=== PATIENT | male | born 1975 | race Caucasian/White ===

== ENCOUNTER → 2020-03-01 08:51 | Outpatient (BNVA) | payer SELFPAY | PROVIDERS: PCP Internal Medicine; Visit Provider Nurse Practitioner Family | DX: G47.33 Obstructive sleep apnea (adult) (pediatric) (principal) | CPT/HCPCS: 99212 ==

== ENCOUNTER → 2020-04-26 09:13 | Outpatient (BNVA) | payer OTHER, SELFPAY | PROVIDERS: PCP Nurse Practitioner Family; Visit Provider Nurse Practitioner Family | DX: Z76.89 Persons encountering health services in other specified circumstances (principal) ==

== ENCOUNTER → 2020-07-26 09:22 | Outpatient (BNVA) | payer OTHER, SELFPAY | PROVIDERS: PCP Nurse Practitioner Family; Visit Provider Nurse Practitioner Family ==

== ENCOUNTER 2020-09-17 09:17 | Outpatient (REF) | payer OTHER, SELFPAY ==
[2020-09-17 11:31] LABS: Alanine Aminotransferase 67 U/L (0-40); Albumin Level 4.6 g/dL (3.5-5.0); Alkaline Phosphatase 99 U/L (39-117); Anion Gap 15 (12-20); Aspartate Amino Transferase 29 U/L (5-37); Bilirubin Total 0.5 mg/dL (0.0-1.0); Blood Urea Nitrogen 10 mg/dL (9-16); Calcium 9.2 mg/dL (8.4-10.2); Carbon Dioxide 27 mmol/L (22-29); Chloride 104 mmol/L (96-108); Cholesterol 194 mg/dL; Estimated Glomerular Filt Rate > 60; Glucose Fasting 96 mg/dL (60-99); HDL Cholesterol 42 mg/dL; LDL Cholesterol Calculated 126 mg/dl; Potassium 4.5 mmol/L (3.3-5.1); Sodium 141 mmol/L (135-145); Total Protein 7.4 g/dL (6.5-8.0); Triglycerides 133 mg/dL
[2020-09-17 11:55] LABS: TSH reflex Free T4 1.74 uIU/mL (0.32-4.0)
== END 2020-09-17 09:18 | disposition home or self-care (01) ==
LOC: HO.HMGCLDS 09:17
PROVIDERS: PCP Nurse Practitioner Family; Visit Provider Nurse Practitioner Family
DX: Z00.00 Encounter for general adult medical examination without abnormal findings (principal)
CPT/HCPCS: 36415; 80053; 80061; 84443

== ENCOUNTER 2022-06-02 09:03 | Outpatient (REF) | payer OTHER, SELFPAY ==
[2022-06-02 11:10] LABS: Appearance Urine Clear; Color Urine Yellow; Glucose Urine UA Negative (Negative); Leukocyte Esterase Urine Negative (Negative); Nitrite Urine Negative (Negative); Urine Blood Negative (Negative); Urine Ketones Negative (Negative); Urine Protein Negative (Neg-Trace)
[2022-06-02 11:34] LABS: Alanine Aminotransferase 52 U/L (0-40); Albumin Level 4.7 g/dL (3.5-5.0); Alkaline Phosphatase 92 U/L (39-117); Anion Gap 15 (12-20); Aspartate Amino Transferase 25 U/L (5-37); Bilirubin Total 0.7 mg/dL (0.0-1.0); Blood Urea Nitrogen 11 mg/dL (9-16); Calcium 9.5 mg/dL (8.4-10.2); Carbon Dioxide 26 mmol/L (22-29); Chloride 104 mmol/L (96-108); Cholesterol 185 mg/dL; Estimated Glomerular Filt Rate > 60; Glucose Fasting 93 mg/dL (60-99); HDL Cholesterol 46 mg/dL; LDL Cholesterol Calculated 121 mg/dl; Potassium 4.2 mmol/L (3.3-5.1); Sodium 141 mmol/L (135-145); Total Protein 7.4 g/dL (6.5-8.0); Triglycerides 93 mg/dL
[2022-06-02 11:41] LABS: TSH reflex Free T4 1.25 uIU/mL (0.32-4.0)
== END 2022-06-02 09:04 | disposition home or self-care (01) ==
LOC: HO.HMGCLDS 09:03
PROVIDERS: PCP Nurse Practitioner Family; Visit Provider Nurse Practitioner Family
DX: Z00.00 Encounter for general adult medical examination without abnormal findings (principal)
CPT/HCPCS: 36415; 80053; 80061; 81003; 84443

== ENCOUNTER 2022-08-22 12:01 | Outpatient (REF) | payer OTHER, SELFPAY ==
--- NOTE | 2022-08-22 09:15 | EMG_ITS ---
Please see scanned EMG / Nerve Conduction Report. MTDD
== END 2022-08-22 12:02 | disposition home or self-care (01) ==
LOC: HO.NEURO 12:01
PROVIDERS: PCP Nurse Practitioner Family; Visit Provider Nurse Practitioner Family
DX: R20.0 Anesthesia of skin (principal)
CPT/HCPCS: 95885; 95913

== ENCOUNTER 2022-11-22 09:26 | Outpatient (AMB) | payer OTHER, SELFPAY ==
[2022-11-22 09:38] VITALS: BP 140/88; PULSE 85; O2SAT 95; BMI 37.3
--- NOTE | 2022-11-22 09:38 | MHC.PC.OV ---
Vital Signs 11/22/22 09:38 Height 5 ft 10 in Weight 260 lb 2 oz BMI 37.3 BP 140/88 H Blood Pressure Location Lt brachial Position Sitting Pulse 85 Pulse Source Pulse Oximeter Pulse Oximetry (%) 95 Oxygen Delivery Method Room Air Intake Visit Reasons: 5m follow up ( nerve conduction ) Allergies No Known Allergies Allergy (Verified 11/22/22 12:08) Medication List - Last Reconciled 11/22/22 by BELINDA Gregg amlodipine 10 mg PO DAILY atorvastatin 40 mg PO BEDTIME hydrochlorothiazide 25 mg PO DAILY losartan 100 mg PO DAILY metoprolol succinate ER 25 mg PO DAILY 30 days trazodone 50 mg PO BEDTIME PRN 90 days Tobacco use date assessed: 11/22/22 Dental Screening Dental Screen Date: 11/22/22 Did you have a dental visit in the last 12 months?: No Did you have a dental problem in the last 6 months where you did not have access to dental care?: No Was dental information given to patient?: No HPI 5m follow up ( nerve conduction ) HPI Details Pt reports ongoing bilat hand numbness. He had EMG/nerve conduction testing which showed mild to moderate carpal tunnel to the right and mild carpal tunnel to the left. Pt has worn wrist braces which helped when he wore them. HTN: Blood pressure is managed with amlodipine 10mg, hydrochlorothiazide 25mg, and losartan 100mg. Will add metoprolol 25mg. Denies chest pain, shortness of breath, headache, dizziness, and blurred vision. Pt c/o insomnia. He reports no longer taking trazodone 50mg because it makes him too tired in the morning. Recommended taking 25mg. Also encouraged pt to wear his CPAP. [facility] Medical History (Updated 11/22/22 @ 12:13 by BELINDA Gregg) Carpal tunnel syndrome, bilateral Family history of heart disease Fatty liver GERD (gastroesophageal reflux disease) Hyperlipidemia Sleep apnea Family History Father Hypertension Mother No problems noted. 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 Zen Mix, Diana Naranjo, Neno Burnham and colleagues, with an educational gregoria from [employer]. Review of Systems Const Reports as per HPI Physical exam (Primary Care) Vital Signs: Last Vital Signs Pulse 85 11/22/22 09:38 BP 140/88 H 11/22/22 09:38 Pulse Ox 95 11/22/22 09:38 Oxygen Delivery Method Room Air 11/22/22 09:38 BMI result Body Mass Index 37.3 Tobacco/Smoking Status: Tobacco use Status Tobacco use date assessed 11/22/22 11/22/22 09:42 Patient Tobacco Use Status Never used Tobacco 11/22/22 09:42 e-Cigarette/Vaping Use Never Used 11/22/22 09:42 Thrive Assessment: Date of Thrive Assessment Date Thrive assessed 06/19/22 11/22/22 09:42 Const General: cooperative Nutritional Appearance: obese Orientation/consciousness: patient oriented x3 Resp Effort & Inspection: normal respiratory effort Auscultation: clear to auscultation bilaterally Cardio Rate: regular rate Rhythm: regular rhythm Heart sounds: S1 normal heart sound present and S2 normal heart sound present Neuro General: patient oriented x3 Extrem Right lower extremity: no edema Left lower extremity: no edema Psych Appearance: grossly normal Mental Status: mental status grossly normal Speech and movement: Normal speech and movement present Affect: normal affect Attitude: cooperative Thought process: Normal thought process present Thought content: Normal thought content present Insight: Good insight present (Psych) Judgement: Good judgement present (Psych) Assessment and Plan Assessment & Plan (1) Carpal tunnel syndrome, bilateral: Code(s): G56.03 - Carpal tunnel syndrome, bilateral upper limbs (2) HTN (hypertension): Comment: continue losartan, hctz, amlodipine, pt will track BP at home, BB added Code(s): I10 - Essential (primary) hypertension (3) Mild obstructive sleep apnea: Comment: AHI 11.6/hr, O2 alex 85%. Resp Company: [facility]. Code(s): G47.33 - Obstructive sleep apnea (adult) (pediatric) Plan The patient agreed to the use of a rn medical inpatient services for this encounter. Scribed for BELINDA Mondragon by Loreto Ríos rn medical inpatient services, on 11/22/2022 at 09:55 EST. Medications: New metoprolol succinate ER 25 mg PO DAILY 30 days 30 tabs 4RF Coding Level of Care Code Est Pt Level 3 (07980) Diagnoses Carpal tunnel syndrome, bilateral G56.03 HTN (hypertension) I10 Mild obstructive sleep apnea G47.33
== END 2022-11-22 10:26 | disposition home or self-care (01) ==
PROVIDERS: Visit Provider Nurse Practitioner Family
DX: G56.03 Carpal tunnel syndrome, bilateral upper limbs (principal); I10 Essential (primary) hypertension; G47.33 Obstructive sleep apnea (adult) (pediatric)
CPT/HCPCS: 99213

== ENCOUNTER 2022-12-18 12:28 | Outpatient (AMB) | payer OTHER, SELFPAY ==
--- NOTE | 2022-12-18 13:13 | AM.OFFWIN_ITS ---
Intake Vital Signs 12/18/22 13:14 Weight 255 lb BP 112/72 Blood Pressure Location Lt brachial Position Sitting Pulse 92 Pulse Source Pulse Oximeter Temp 97.8 F Temp Source Temporal Artery Scan Pulse Oximetry (%) 95 Oxygen Delivery Method Room Air Intake Visit Reasons: EP Chest cold/Congestion (masked) Intake Note: Patient here for chest congestion, bad cough, very min nausea for about 1 week Patient Tobacco Use Status: Never used Tobacco Allergies No Known Allergies Allergy (Verified 12/18/22 13:15) Do you need a note to return to daycare/school/sports/work: No HPI EP Chest cold/Congestion (masked) HPI Details 47-year-old male patient presents today with a 7 day history of chest congestion, wheezing, persistent nonproductive cough. He has tried numerous [id number] remedies including different cough medicines without relief. He has had some intermittent wheezing, and used his partners albuterol inhaler yesterday with some good relief. Coughing fits become exacerbated at night time, and have been making sleep difficult. He denies any fever, chills, shortness of breath, body aches, or GI symptoms. [facility]END[facility] SALE TO [facility] Medical History Carpal tunnel syndrome, bilateral Family history of heart disease Fatty liver GERD (gastroesophageal reflux disease) Hyperlipidemia Sleep apnea Family History Father Hypertension Mother No problems noted. 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 Current occupational exposures/hazards: No Cognitive needs: No Hearing needs: No Vision needs: No Review of Systems Const All systems reviewed & are unremarkable except as noted in HPI and below Physical Exam Vital Signs: Last Vital Signs Temp 97.8 F 12/18/22 13:14 Pulse 92 12/18/22 13:14 BP 112/72 12/18/22 13:14 Pulse Ox 95 12/18/22 13:14 Oxygen Delivery Method Room Air 12/18/22 13:14 Const Other: Actively coughing General: cooperative, healthy appearing and no acute distress HEENT Head: Yes normal to inspection Ears: hearing grossly normal bilaterally General nose exam: Normal external nose present and Normal nasal mucous membranes and turbinates present Mouth: Normal oral and palatal mucosa present and moist mucous membranes Throat: Yes posterior oropharynx normal Neck Neck: Yes no lymphadenopathy Resp Effort & Inspection: normal respiratory effort, able to speak in complete sentences and Actively coughing Quality: actively coughing Auscultation: wheezes upper bilaterally Cardio Jugular venous distension: no JVD Palpation: normal PMI Rate: regular rate Rhythm: regular rhythm Skin General skin exam: no rashes or lesions noted Extrem General: Yes capillary refill normal and Yes no clubbing, cyanosis or edema Psych Appearance: grossly normal Mental Status: mental status grossly normal Speech and movement: Normal speech and movement present Assessment & Plan Assessment & Plan (1) Bronchitis, acute: Code(s): J20.9 - Acute bronchitis, unspecified Qualifiers: Bronchitis organism: unspecified organism Qualified Code(s): J20.9 - Acute bronchitis, unspecified Plan: Persistent cough, intermittent wheezing x>7 days despite conservative measures. Will start patient on azithromycin, benzonatate, and provided him with rx for albuterol inhaler for p.r.n. use. We reviewed indications, use, possible side effects of all medications. If he does not improve with time and these measures, he should return to the clinic or PCP for further evaluation. Patient verbalizes understanding and agrees to plan. Medications: New benzonatate 100 mg PO BID PRN 14 caps 0RF cough 7 days J20.9 - Acute bronchitis, unspecified, R05.9 - Cough, unspecified albuterol sulfate 90 mcg/actuation 1 inh inhalation QID PRN 6.7 grams 1RF sh ortness of breath or wheezing J20.9 - Acute bronchitis, unspecified azithromycin For 250 mg dose pack: take 500 mg today (day 1), then 250 mg for 4 days (days 2-5) PO 6 tabs 0RF J20.9 - Acute bronchitis, unspecified Coding Level of Care Code Est Pt Level 3 (54086) Diagnoses Bronchitis, acute J20.9 Bronchitis organism: unspecified organism
[2022-12-18 13:14] VITALS: BP 112/72; PULSE 92; TEMP 36.6; O2SAT 95
== END 2022-12-18 14:08 | disposition home or self-care (01) ==
PROVIDERS: PCP Nurse Practitioner Family; Visit Provider Nurse Practitioner Family
DX: J20.9 Acute bronchitis, unspecified (principal)
CPT/HCPCS: 99213

== ENCOUNTER 2023-03-26 09:17 | Outpatient (REF) | payer OTHER, SELFPAY ==
[2023-03-26 10:20] LABS: MANUAL DIFF FLAG NO
[2023-03-26 10:48] LABS: Basophils Absolute Auto 0.1 X10*3/uL (0.0-0.2); Basophils Percent Auto 0.7 % (0-2); Eosinophils Absolute Auto 0.2 X10*3/uL (0.0-0.4); Eosinophils Percent Auto 3.3 % (0-4); Hematocrit 45.8 % (42.0-52.0); Hemoglobin 15.4 g/dl (14.0-18.0); Imm Gran Abs Auto 0.03 X10*3/uL (0.00-0.03); Imm Gran Pct Auto 0.4 % (0.0-0.4); Lymphocytes Absolute Auto 2.5 X10*3/uL (1.2-4.9); Lymphocytes Percent Auto 33.6 % (20-40); Mean Corpuscular HGB Conc 33.6 g/dl (31.0-36.0); Mean Corpuscular Hemoglobin 29.1 pg (27.0-33.0); Mean Corpuscular Volume 86.4 fL (80.0-98.0); Mean Platelet Volume 10.1 fL (9.4-12.4); Monocytes Absolute Auto 0.5 X10*3/uL (0.1-1.2); Monocytes Percent Auto 6.1 % (2-11); Neutrophils Absolute Auto 4.1 x10*3/uL (2.0-8.3); Neutrophils Percent Auto 55.9 % (45-73); Platelet Count 292 X10*3/uL (160-400); Red Cell Distribution Width 12.5 % (11.0-16.0); White Blood Count 7.4 X10*3/uL (4.8-10.8)
[2023-03-26 10:50] LABS: Appearance Urine Clear; Color Urine Yellow; Glucose Urine UA Negative (Negative); Leukocyte Esterase Urine Negative (Negative); Nitrite Urine Negative (Negative); Specific Gravity - Urine 1.015 (1.005-1.025); Urine Blood Negative (Negative); Urine Ketones Negative (Negative); Urine Protein Trace mg/dL (Neg-Trace)
[2023-03-26 11:27] LABS: Alanine Aminotransferase 59 U/L (0-40); Albumin Level 4.5 g/dL (3.5-5.0); Alkaline Phosphatase 95 U/L (39-117); Anion Gap 12 (12-20); Aspartate Amino Transferase 28 U/L (5-37); Bilirubin Total 0.9 mg/dL (0.0-1.0); Blood Urea Nitrogen 10 mg/dL (9-16); Calcium 9.5 mg/dL (8.4-10.2); Carbon Dioxide 28 mmol/L (22-29); Chloride 104 mmol/L (96-108); Cholesterol 186 mg/dL (<200); Estimated Glomerular Filt Rate > 60; Glucose Fasting 100 mg/dL (60-99); HDL Cholesterol 43 mg/dL (>40); LDL Cholesterol Calculated 122 mg/dL (<100); Potassium 4.1 mmol/L (3.3-5.1); Sodium 140 mmol/L (135-145); TSH reflex Free T4 1.44 uIU/mL (0.32-4.0); Total Protein 7.9 g/dL (6.5-8.0); Triglycerides 108 mg/dL (<150)
== END 2023-03-26 09:18 | disposition home or self-care (01) ==
LOC: HO.HMGCLDS 09:17
PROVIDERS: PCP Nurse Practitioner Family; Visit Provider Nurse Practitioner Family
DX: Z00.00 Encounter for general adult medical examination without abnormal findings (principal); I10 Essential (primary) hypertension
CPT/HCPCS: 36415; 80053; 80061; 81003; 84443; 85025

== ENCOUNTER 2023-04-01 09:18 | Outpatient (AMB) | payer OTHER, SELFPAY ==
--- NOTE | 2023-04-01 09:37 | MHC.PC.OV ---
Vital Signs 04/01/23 09:38 Weight 258 lb BP 128/80 Blood Pressure Location Lt brachial Position Sitting Pulse 72 Pulse Source Pulse Oximeter Pulse Oximetry (%) 98 Oxygen Delivery Method Room Air Intake Visit Reasons: 4 month fu Allergies No Known Allergies Allergy (Verified 04/01/23 09:38) Medication List - Last Reconciled 04/01/23 by EAMON GreggRIKA albuterol sulfate 90 mcg/actuation 1 inh inhalation QID PRN amlodipine 10 mg PO DAILY atorvastatin 40 mg PO BEDTIME hydrochlorothiazide 25 mg PO DAILY losartan 100 mg PO DAILY metoprolol succinate ER 25 mg PO DAILY 30 days trazodone 50 mg PO BEDTIME PRN 90 days Tobacco use date assessed: 11/22/22 HPI 4 month fu HPI Details HTN: Blood pressure is stable, managed with amlodipine 10mg, hydrochlorothiazide 25mg, losartan 100mg, and metoprolol 25mg. Pt does not check his blood pressure at home. Denies chest pain, shortness of breath, headache, dizziness, and blurred vision. [facility] Medical History Carpal tunnel syndrome, bilateral Fatty liver Family history of heart disease GERD (gastroesophageal reflux disease) Sleep apnea Hyperlipidemia Family History Father Hypertension Mother No problems noted. 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 Zen Mix, Diana Naranjo, Neno Burnham and colleagues, with an educational gregoria from [employer]. Review of Systems Const Reports as per HPI Physical exam (Primary Care) Vital Signs: Last Vital Signs Pulse 72 04/01/23 09:38 BP 128/80 04/01/23 09:38 Pulse Ox 98 04/01/23 09:38 Oxygen Delivery Method Room Air 04/01/23 09:38 Tobacco/Smoking Status: Tobacco use Status Tobacco use date assessed 11/22/22 04/01/23 09:38 Patient Tobacco Use Status Never used Tobacco 04/01/23 09:38 e-Cigarette/Vaping Use Never Used 04/01/23 09:38 Thrive Assessment: Date of Thrive Assessment Date Thrive assessed 06/19/22 04/01/23 09:38 Const General: cooperative Nutritional Appearance: obese Orientation/consciousness: patient oriented x3 Resp Auscultation: clear to auscultation bilaterally Cardio Rate: regular rate Rhythm: regular rhythm Heart sounds: S1 normal heart sound present, S2 normal heart sound present and no murmurs Neuro General: patient oriented x3 Psych Appearance: grossly normal Mental Status: mental status grossly normal Speech and movement: Normal speech and movement present Affect: normal affect Attitude: cooperative Thought process: Normal thought process present Thought content: Normal thought content present Insight: Good insight present (Psych) Judgement: Good judgement present (Psych) Assessment and Plan Assessment & Plan (1) Screening for colon cancer: Code(s): Z12.11 - Encounter for screening for malignant neoplasm of colon (2) HTN (hypertension): Comment: cont all meds Code(s): I10 - Essential (primary) hypertension Plan The patient agreed to the use of a medical reimbursement manager for this encounter. Scribed for BELINDA Mondragon by Loreto Ríos medical reimbursement manager, on 04/01/2023 at 09:50 EST. Orders: Referrals Gastroenterology Referral Z12.11 - Encounter for screening for malignant neoplasm of colon Coding Level of Care Code Est Pt Level 3 (51010) Diagnoses Screening for colon cancer Z12.11 HTN (hypertension) I10
[2023-04-01 09:38] VITALS: BP 128/80; PULSE 72; O2SAT 98
== END 2023-04-01 10:37 | disposition home or self-care (01) ==
PROVIDERS: PCP Nurse Practitioner Family; Visit Provider Nurse Practitioner Family
DX: Z12.11 Encounter for screening for malignant neoplasm of colon (principal); I10 Essential (primary) hypertension
CPT/HCPCS: 99213

== ENCOUNTER 2023-08-09 15:14 | Outpatient (AMB) | payer OTHER, SELFPAY ==
--- NOTE | 2023-08-09 15:16 | MHC.OFFVIS ---
Vital Signs 08/09/23 15:21 Height 5 ft 10 in Weight 267 lb BMI 38.3 BP 161/92 H Blood Pressure Location Lt brachial Position Sitting Pulse 95 Intake Visit Reasons: Colonoscopy Screening Intake Note: Patient is seen in office for colonoscopy screening. Pt c/o: denies any prior colonoscopy has family hx of prostate cancer, had issues last month with hemorrhoids in the past month, has resolve, denies any other concerns such as n/v/d/c Assisted Living Director Required: No Allergies No Known Allergies Allergy (Verified 08/09/23 15:21) HPI HPI Colonoscopy Screening: Details: 47 year old?male with past medical history of hypertension, TANYA, insomnia is here today for pre colonoscopy screening.? Patient was sent to us by his PCP.? This is his first colonoscopy screening.? Patient denies any gastrointestinal symptoms in the past or at present.? ?No family history of CRC, patient is grandfather was diagnosed with prostate cancer at age 60. Patient never had anesthesia in the past.? History of sleep apnea, not using CPAP at this time.? Denies any history of cardiac, renal, pulmonary, or hepatic disease.?? No history of infectious? diseases like hepatitis A, B, C, HIV or tuberculosis.? Patient is not on any anticoagulation therapy. [facility] Medical History Carpal tunnel syndrome, bilateral Fatty liver Family history of heart disease GERD (gastroesophageal reflux disease) Sleep apnea Hyperlipidemia Family History (Updated 08/09/23 @ 15:50 by NELSON Tobin) Father Hypertension Mother No problems noted. 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 Current occupational exposures/hazards: No Cognitive needs: No Hearing needs: No Vision needs: No Review of Systems Const Denies weight gain and Denies weight loss ENT Reports no additional complaints, Denies dysphagia and Denies odynophagia Card Reports no additional complaints Resp Reports no additional complaints GI Denies abdominal pain, Denies belching, Denies melena, Denies bloating, Denies change in bowel habits, Denies dysphagia, Denies excessive flatus, Denies dyspepsia, Denies heartburn, Denies diarrhea, Denies loose stools, Denies nausea, Denies odynophagia and Denies vomiting Reports no additional complaints Musc Reports no additional complaints Neuro Reports no additional complaints Psych Reports no additional complaints Endo Reports no additional complaints Physical Exam Vital Signs: Last Vital Signs Pulse 95 08/09/23 15:21 BP 161/92 H 08/09/23 15:21 BMI result Body Mass Index 38.3 Const General: healthy appearing and no acute distress Nutritional Appearance: obese Orientation/consciousness: patient oriented x3 Resp Effort & Inspection: normal respiratory effort, able to speak in complete sentences, no tracheal deviation and symmetric chest movement Auscultation: clear to auscultation bilaterally Cardio Rate: regular rate GI Inspection: Yes normal to inspection, No distended and Yes obesity Palpation (GI): Soft to palpation, not firm, nontender and No hepatosplenomegaly present Auscultation: normal bowel sounds General: Yes no CVA tenderness Back/Spine/Pelvis Back: no CVA tenderness Skin General skin exam: elasticity normal, turgor normal and dry skin Neuro General: patient oriented x3 Psych Appearance: grossly normal Mental Status: mental status grossly normal Assessment & Plan Assessment & Plan (1) Screening for colon cancer: Code(s): Z12.11 - Encounter for screening for malignant neoplasm of colon Category: Medical Plan Patient denies any GI, cardiac or respiratory symptoms. ?Denies anesthesia in the past.? History of sleep apnea.? No history infectious diseases in the past or present.? Not on any anticoagulation therapy.? No family or personal history of colon cancer or polyps.? Patient denies melena, hematochezia, unintentional weight loss or ribbon like stools.? Discussed at length the pre-procedure,? prep, diet & medications as well as what to expect prior, during and after the procedure.?? Stressed the importance of good bowel prep. ?Recommended the use of Vaseline or Calmoseptine OTC & baby wipes with bowel movements to promote comfort.? ?Patient verbalizes understanding and agrees to plan of care.? He was given the opportunity to ask questions and all questions answered.? We will see him after the procedure.? Medications: New polyethylene glycol 3350 (Miralax) As directed by gastroenterology department at [facility] 238 grams PO ONCE 238 grams 0RF Z12.11 - Encounter for screening for malignant neoplasm of colon bisacodyl (Dulcolax (bisacodyl)) take 4 tabs at noon the day before your colonoscopy 20 mg (4 x 5 mg) PO ONCE 1 day 4 tabs 0RF Z12.11 - Encounter for screening for malignant neoplasm of colon
[2023-08-09 15:21] VITALS: BP 161/92; PULSE 95; BMI 38.3
== END 2023-08-09 16:09 | disposition home or self-care (01) ==
PROVIDERS: PCP Nurse Practitioner Family; Visit Provider Nurse Practitioner Family
DX: Z12.11 Encounter for screening for malignant neoplasm of colon (principal); Z01.818 Encounter for other preprocedural examination
CPT/HCPCS: 99203

== ENCOUNTER → 2023-08-09 15:14 | Outpatient (BNVA) | payer OTHER, SELFPAY | PROVIDERS: PCP Nurse Practitioner Family; Visit Provider Nurse Practitioner Family ==

== ENCOUNTER 2023-09-30 13:39 | Outpatient (AMB) | payer OTHER, SELFPAY ==
--- NOTE | 2023-09-30 14:03 | MHC.PC.OV ---
Vital Signs 09/30/23 14:06 Height 5 ft 10 in Weight 265 lb BMI 38.0 BP 128/80 Blood Pressure Location Rt brachial Position Sitting Pulse 69 Pulse Source Pulse Oximeter Pulse Oximetry (%) 98 Oxygen Delivery Method Room Air Intake Visit Reasons: Annual PE Intake Note: Patient here for physical exam. pt would like to talk about stress Allergies No Known Allergies Allergy (Verified 09/30/23 16:55) Medication List - Last Reconciled 09/30/23 by BELINDA Gregg albuterol sulfate 90 mcg/actuation 1 inh inhalation QID PRN amlodipine 10 mg PO DAILY atorvastatin 40 mg PO BEDTIME hydrochlorothiazide 25 mg PO DAILY losartan 100 mg PO DAILY metoprolol succinate ER 25 mg PO DAILY polyethylene glycol 3350 (Miralax) 238 grams PO ONCE trazodone 50 mg PO BEDTIME PRN 90 days Tobacco use date assessed: 09/30/23 Dental Screening Dental Screen Date: 09/30/23 Did you have a dental visit in the last 12 months?: Yes Did you have a dental problem in the last 6 months where you did not have access to dental care?: No Was dental information given to patient?: Patient has dentist HPI Annual PE HPI Details Pt is here for a PE. Will order labs. Colon screen is scheduled. PENDING SALE TO [facility] Medical History Carpal tunnel syndrome, bilateral Fatty liver Family history of heart disease GERD (gastroesophageal reflux disease) Sleep apnea Hyperlipidemia Family History Father Hypertension Mother No problems noted. 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 84115 - PHQ-9 Billing: Patient declined-do not bill Source: Developed by Drs. Zen Mix, Diana Naranjo, Neno Burnham and colleagues, with an educational gregoria from [employer]. Thrive Questionnaire Date Thrive assessed: 09/30/23 I am a: Patient What is your living situation today?: I choose not to answer this question Within the past 12 months, did the food you bought not last and you didn't have the money to get more?: I choose not to answer this question Within the past 12 months, did you worry whether your food would run out before you got money to buy more?: I choose not to answer this question Do you have trouble paying for medicines?: I choose not to answer this question Do you have trouble getting transportation to medical appointments?: I choose not to answer this question Do you have trouble paying your heating and electricity bill?: I choose not to answer this question Do you have trouble taking care of your child, family member or friend?: I choose not to answer this question Do you have trouble with day-to-day activities such as bathing, preparing meals, shopping, managing finances, etc.?: I choose not to answer this question Are you currently unemployed and looking for a job?: I choose not to answer this question Are you interested in more education?: I choose not to answer this question Currently or been in a relationship where the following occur: I choose not to answer this question THRIVE Score: 0 AUDIT C Alcohol Use Questionnaire (AUDIT-C) 1. How often do you have a drink containing alcohol?: Never 3. How often do you have six or more drinks on one occasion?: Never Total Score: 0 Score Reviewed/Action Taken: No MAYELA-7 AMB Questionnaire MAYELA-7 Date MAYELA - 7 assessed: 09/30/23 Source: Developed by Drs. Zen Mix, Diana Naranjo, Neno Burnham and colleagues, with an educational gregoria from [employer]. MAYELA-7 Assessment Billing MAYELA-7 Assessment Tool: pt declined-do not bill Review of Systems Const Denies chills and Denies fever(s) Eyes Denies blurry vision ENT Denies vertigo, Denies dizziness and Denies sore throat Card Denies chest pain at rest, Denies chest pain with activity, Denies diaphoresis, Denies dyspnea and Denies dyspnea on exertion Resp Denies cough, Denies dyspnea, Denies dyspnea on exertion and Denies wheezing GI Denies abdominal pain, Denies melena, Denies hematochezia, Denies constipation, Denies diarrhea and Denies loose stools Denies hematuria Musc Denies numbness and Denies tingling Skin/Breast Denies lesions Neuro Denies vertigo, Denies dizziness, Denies numbness and Denies tingling Psych Denies anxiety, Denies depression, Denies homicidal ideation, Denies suicidal ideation and Denies other (substance abuse) Aller/Immun Denies wheezing Physical exam (Primary Care) Vital Signs: Last Vital Signs Pulse 69 09/30/23 14:06 BP 128/80 09/30/23 14:06 Pulse Ox 98 09/30/23 14:06 Oxygen Delivery Method Room Air 09/30/23 14:06 BMI result Body Mass Index 38.0 Tobacco/Smoking Status: Tobacco use Status Tobacco use date assessed 09/30/23 09/30/23 14:11 Patient Tobacco Use Status Never used Tobacco 09/30/23 14:05 e-Cigarette/Vaping Use Never Used 09/30/23 14:05 Thrive Assessment: Date of Thrive Assessment Date Thrive assessed 09/30/23 09/30/23 14:11 Currently or been in a relationship where the following occur: I choose not to answer this question Const General: cooperative Nutritional Appearance: obese Orientation/consciousness: patient oriented x3 HENMT Head: Yes normal to inspection, Yes normocephalic and Yes atraumatic Ears: TM's normal bilaterally Eyes General: appearance normal, both eyes and all related structures Alignment and Position: alignment normal and position normal Neck Neck: Yes normal visual inspection and Yes no lymphadenopathy Thyroid: Thyroid normal Resp Effort & Inspection: normal respiratory effort Auscultation: clear to auscultation bilaterally Cardio Rate: regular rate Rhythm: regular rhythm Heart sounds: S1 normal heart sound present, S2 normal heart sound present and no murmurs GI Palpation (GI): Soft to palpation and nontender Auscultation: normal bowel sounds Male General Exam: Yes normal external exam Penis: normal penis Scrotum: scrotum normal, testes descended bilaterally and no inguinal hernias Testes: no testicular mass Skin Rashes: no rashes Neuro General: patient oriented x3, moves all extremities, no focal motor deficits and deep tendon reflexes 2+ bilaterally Romberg Test: Negative Psych Appearance: grossly normal Mental Status: mental status grossly normal Speech and movement: Normal speech and movement present Affect: normal affect Attitude: cooperative Thought process: Normal thought process present Thought content: Normal thought content present Insight: Good insight present (Psych) Judgement: Good judgement present (Psych) Assessment and Plan Assessment & Plan (1) Physical exam: Code(s): Z00.00 - Encounter for general adult medical examination without abnormal findings Plan: labs ordered (2) Obesity: Code(s): E66.9 - Obesity, unspecified Plan: encouraged weight loss, watching diet. Plan The patient agreed to the use of a medical records receptionist for this encounter. Scribed for BELINDA Mondragon by Loreto Ríos medical records receptionist, on 09/30/2023 at 14:25 EST. Coding Level of Care Code Est Pt Prev Care 40-64y(55453) Diagnoses Physical exam Z00.00 Obesity E66.9
[2023-09-30 14:06] VITALS: BP 128/80; PULSE 69; O2SAT 98; BMI 38.0
== END 2023-09-30 14:28 | disposition home or self-care (01) ==
PROVIDERS: PCP Nurse Practitioner Family; Visit Provider Nurse Practitioner Family
DX: Z00.00 Encounter for general adult medical examination without abnormal findings (principal); E66.9 Obesity, unspecified; Z68.38 Body mass index [BMI] 38.0-38.9, adult
CPT/HCPCS: 99396

== ENCOUNTER 2023-12-19 10:32 | Day surgery (SDC) | payer OTHER, SELFPAY ==
[2023-12-19 10:43] VITALS: BP 142/100; PULSE 88; RESP 16; TEMP 36.7; O2SAT 98; BMI 35.5
[2023-12-19] MEDS: Lactated Ringers 1,000 ML 100 ML IVCONT (10:57)
--- NOTE | 2023-12-19 11:40 | P.CONAN_ITS ---
Documented by User: Shanika Jones NP 12/18/23 09:03 HPI - Anesthesia Eval Consult details Narrative: 48yo M for Colonoscopy PMFSH Active Problems Active Problems: All Active Problems Obesity (Acute) Screening for colon cancer (Acute) Carpal tunnel syndrome, bilateral (Acute) Numbness in both hands (Acute) Lesion of penis (Acute) Insomnia (Acute) Physical exam (Acute) HTN (hypertension) (Acute) Mild obstructive sleep apnea (Acute) Past Medical History Medical History Carpal tunnel syndrome, bilateral Fatty liver Family history of heart disease GERD (gastroesophageal reflux disease) Sleep apnea Hyperlipidemia Family History Family History Father Hypertension Mother No problems noted. Paternal Grandfather Prostate cancer Social History Social History Housing: House Are you a primary special needs child caregiver to a significant other at home: No Do you presently have visiting nurse or other home services: No Alcohol intake: never Patient Tobacco Use Status: Never used Tobacco e-Cigarette/Vaping Use: Never Used Second Hand Smoke Exposure: No Use of substances other than those prescribed or required for medical reasons: No Have you been hit, kicked, punched, or otherwise hurt by someone within the past year? 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 Current occupational exposures/hazards: No Cognitive needs: No Hearing needs: No Vision needs: No Meds Allergies Allergy/AdvReac Type Severity Reaction Status Date / Time No Known Allergies Allergy Verified 09/30/23 16:55 Assessment and Plan Assessment Anesthesia Assessment: Chart Reviewed Documented by User: Shantal Rhodes DO 12/19/23 11:49 [facility] Past Medical History Medical History Carpal tunnel syndrome, bilateral Fatty liver Family history of heart disease GERD (gastroesophageal reflux disease) Sleep apnea Hyperlipidemia Family History Family History Father Hypertension Mother No problems noted. Paternal Grandfather Prostate cancer Family history of problems with anesthesia: No Surgical History History of Problems with Anesthesia: Unobtainable (patient never had anesthesia before) Social History Social History Housing: House Are you a primary special needs child caregiver to a significant other at home: No Do you presently have visiting nurse or other home services: No Alcohol intake: never Patient Tobacco Use Status: Never used Tobacco e-Cigarette/Vaping Use: Never Used Second Hand Smoke Exposure: No Use of substances other than those prescribed or required for medical reasons: No Have you been hit, kicked, punched, or otherwise hurt by someone within the past year? 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 Current occupational exposures/hazards: No Cognitive needs: No Hearing needs: No Vision needs: No Meds Allergies Allergy/AdvReac Type Severity Reaction Status Date / Time No Known Allergies Allergy Verified 09/30/23 16:55 Exam Exam Date and Time: 12/19/23 1140 Height,Weight and Vital Signs: Height 5 ft 10 in Weight 112.128 kg Vital Signs Temperature 98.1 F 12/19/23 10:43 Pulse Rate 88 12/19/23 10:43 Respiratory Rate 16 12/19/23 10:43 Blood Pressure 142/100 H 12/19/23 10:43 Pulse Oximetry 98 12/19/23 10:43 Oxygen Delivery Method Room Air 12/19/23 10:43 Temperature 98.1 F 12/19/23 10:43 Pulse Rate 88 12/19/23 10:43 Respiratory Rate 16 12/19/23 10:43 Blood Pressure 142/100 H 12/19/23 10:43 Pulse Oximetry 98 12/19/23 10:43 Oxygen Delivery Method Room Air 12/19/23 10:43 Airway Mallampati Class: II TM Dist: >3cm Neck ROM: Full Loose/Missing/Broken Teeth: No (patient denies any loose or broken teeth) Heart: S1S2 Lungs: CTAB Assessment and Plan Assessment Anesthesia Assessment: Anesthesia Plan Discussed and Chart Reviewed Final Anesthetic Review Family History of Problems with Anesthesia: No History of Problems with Anesthesia: Unobtainable (patient never had anesthesia before) NPO: Yes ASA Class: II Final Preanesthetic Review: No Changes in Pt Med Stat, Meds/Allgs Chart Reviewed, Consent Obtained/Reviewed and Anes Risks/Benef Reviewed Patient Risk: Low Procedure Risk: Low Anesthetic Plan Anesthetic Plan: MAC: and Agree w/ Assess. and Plan Disposition: Standard PACU
--- NOTE | 2023-12-19 11:54 | MHC.SHP ---
Pre-Procedural Eval Section A - 24 Hr Update-Section A only Date of Service: 12/19/23 Section B - Complete if H&P > 30 days Chief Complaint: Encounter for screening for malignant neoplasm of Relevant Family History (Specify if Yes): No Relevant Social History: None Present Medications: see Short Stay Collaborative assessment Medical History: Significant History (Carpal tunnel syndrome, bilateral Fatty liver Family history of heart disease GERD (gastroesophageal reflux disease) Sleep apnea Hyperlipidemia) History of Previous Operations: Relevant previous surgery/procedure and date(s) Allergies: Allergies Allergy/AdvReac Type Severity Reaction Status Date / Time No Known Allergies Allergy Verified 09/30/23 16:55 Review of Systems Sugical H&P ROS: Negative: Constitution, Cardiovascular, Respiratory, Neurological, Psychiatric, Hem-Onc, Allergic/Immunologic, Gastrointestinal, Genitourinary, Musculoskeletal, Integumentary, Endocrine and Eyes/Ears/Nose/Throat Exam Surgical H&P Exam: Normal: HEENT, Normal: Heart, Normal: Lungs, Normal: Extremities, Normal: Abdomen, Normal: Skin and Normal: Neurological Plan Diagnosis/Plan: Unchanged I have reviewed the history and physical and performed a pertinent physical examination on my patient. No changes have occurred unless specified. Time Spent With Patient Time: Total time managing care of this patient today ____ minutes.
--- NOTE | 2023-12-19 11:56 | HO.OPN-COLON ---
Colonoscopy Operative Note Operative Note Date of Service: 12/19/23 Narrative: Operative Information Procedure Description: Colonoscopy Indication: Screening Anesthesia: MAC COLONOSCOPY Instrument: Olympus variable stiffness ADULT scope 190L Colonoscopy Monitoring: Vital signs and clinical assessment, continuous EKG monitoring, Pulse oximetry, Carbon Dioxide monitoring and blood pressure monitoring were done throughout the procedure. Colon withdrawal time was 10 minutes. Procedure: The patient was placed in the left lateral decubitis position and pre-procedure medications were administered. After a digital rectal examination of the ano-rectum, the video colonoscope was inserted into the rectum and advanced through the colon to the cecum/TI. The colonoscope was slowly withdrawn in a retrograde panoramic fashion and the colon mucosa was carefully examined including a retroflexed view of the rectum. Findings and interventions are described below. Procedure Difficulty: easy Findings: Terminal Ileum-normal Cecum:normal right sided retroflexion-normal Ascending Colon: normal Transverse Colon -normal Descending Colon: mild diverticulosis Sigmoid Colon: mild diverticulosis Rectum: Retroflexion with small internal hemorrhoids seen, grade I Anorectum - normal Intervention: none Colon preparation: [place] Bowel Preparation Scale Right colon; 2 Transverse colon: 2 Left colon; 2 (0 = Unprepared colon segment with mucosa not seen due to solid stool that cannot be cleared. 1 = Portion of mucosa of the colon segment seen, but other areas of the colon segment not well seen due to staining, residual stool and/or opaque liquid. 2 = Minor amount of residual staining, small fragments of stool and/or opaque liquid, but mucosa of colon segment seen well. 3 = Entire mucosa of colon segment seen well with no residual staining, small fragments of stool or opaque liquid) Impression and Post Procedure Diagnosis: diverticulosis internal hemorrhoids Plan: High fiber diet leaflet Avoid straining at stool, epsom salts and sitz bath, anusol supps or cream Repeat Colonoscopy in 10 years or earlier if clinically indicated Above findings were reviewed with the patient and relevant handouts were provided if indicated.
[2023-12-19 12:23] VITALS: BP 107/72; PULSE 97; RESP 16; TEMP 36.5; O2SAT 97
[2023-12-19 12:38] VITALS: BP 133/97; PULSE 91; RESP 18; TEMP 36.5; O2SAT 96
== END 2023-12-19 12:57 | disposition home or self-care (01) ==
PROVIDERS: PCP Internal Medicine; Visit Provider Internal Medicine Gastroenterology
PROC: 0DJD8ZZ Inspection of Lower Intestinal Tract, Via Natural or Artificial Opening Endoscopic (ICD-10-PCS; CPT 45378; principal; 2023-12-19 12:40)
DX: Z12.11 Encounter for screening for malignant neoplasm of colon (principal); K57.30 Diverticulosis of large intestine without perforation or abscess without bleeding; K64.0 First degree hemorrhoids; K76.0 Fatty (change of) liver, not elsewhere classified; K21.9 Gastro-esophageal reflux disease without esophagitis; I10 Essential (primary) hypertension; E78.5 Hyperlipidemia, unspecified; G47.30 Sleep apnea, unspecified
CPT/HCPCS: 45378; J2704

== ENCOUNTER → 2023-12-19 10:32 | Outpatient (BNV) | payer OTHER, SELFPAY | PROVIDERS: PCP Internal Medicine; Visit Provider Internal Medicine Gastroenterology | DX: Z12.11 Encounter for screening for malignant neoplasm of colon (principal); K57.90 Diverticulosis of intestine, part unspecified, without perforation or abscess without bleeding; K64.0 First degree hemorrhoids | CPT/HCPCS: 45378 ==

== ENCOUNTER 2024-01-20 07:58 | Outpatient (AMB) | payer OTHER, SELFPAY ==
[2024-01-20 08:16] VITALS: BP 140/90; PULSE 62; O2SAT 97; BMI 36.1
--- NOTE | 2024-01-20 08:16 | A.OFFVIS_ITS ---
Vital Signs 01/20/24 08:16 Height 5 ft 10 in Weight 251 lb 5.231 oz BMI 36.1 BP 140/90 H Blood Pressure Location Rt brachial Position Sitting Pulse 62 Pulse Source Pulse Oximeter Pulse Oximetry (%) 97 Oxygen Delivery Method Room Air Intake Visit Reasons: s/p colo major Intake Note: Aristides presents in office today for a scheduled s/p FUV. CC; Pt reports that they are here to discuss results of their procedure. Pt denies any new complications or concerns post op. Pt does not require any refills as they don't have any rx from this office. Stator Winder Required: No Allergies No Known Allergies Allergy (Verified 01/20/24 08:17) HPI HPI s/p colo major: Details: LAST VISIT: Screening for colon cancer Plan Patient denies any GI, cardiac or respiratory symptoms. ?Denies anesthesia in th e past.? History of sleep apnea.? No history infectious diseases in the past or present.? Not on any anticoagulation therapy.? No family or personal history of colon cancer or polyps.? Patient denies melena, hematochezia, unintentional weight loss or ribbon like stools.? Discussed at length the pre-procedure,? prep, diet & medications as well as what to expect prior, during and after the procedure.?? Stressed the importance of good bowel prep. ?Recommended the use of Vaseline or Calmoseptine OTC & baby wipes with bowel movements to promote comfort.? ?Patient verbalizes understanding and agrees to plan of care.? He was given the opportunity to ask questions and all questions answered.? We will see him after the procedure.? Medications New polyethylene glycol 3350 (Miralax) As directed by gastroenterology department at [facility] 238 grams PO ONCE 238 grams 0RF Z12.11 bisacodyl (Dulcolax (bisacodyl)) take 4 tabs at noon the day before your colonoscopy 20 mg (4 x 5 mg) PO ONCE 1 day 4 tabs 0RF Z12.11 COLONOSCOPY: Findings: Terminal Ileum-normal Cecum:normal right sided retroflexion-normal Ascending Colon: normal Transverse Colon -normal Descending Colon: mild diverticulosis Sigmoid Colon: mild diverticulosis Rectum: Retroflexion with small internal hemorrhoids seen, grade I Anorectum - normal Intervention: none Colon preparation: [place] Bowel Preparation Scale Right colon; 2 Transverse colon: 2 Left colon; 2 (0 = Unprepared colon segment with mucosa not seen due to solid stool that can not be cleared. 1 = Portion of mucosa of the colon segment seen, but other areas of the colon segment not well seen due to staining, residual stool and/or opaque liquid. 2 = Minor amount of residual staining, small fragments of stool and/or opaque liquid, but mucosa of colon segment seen well. 3 = Entire mucosa of colon segment seen well with no residual staining, small fragments of stool or opaque liquid) Impression and Post Procedure Diagnosis: diverticulosis internal hemorrhoids Plan: High fiber diet leaflet Avoid straining at stool, epsom salts and sitz bath, anusol supps or cream Repeat Colonoscopy in 10 years or earlier if clinically indicated TODAY'S VISIT: Patient is here today for follow-up and to discuss colonoscopy results. Patient denies any ill effects from the prep, anesthesia or procedure itself. Patient had no polyps. Diverticulosis to left colon and hemorrhoids found. Patient reports family history of CRC. Patient's grandmother was diagnosed with colon cancer. Patient denies any melena, hematochezia. Patient reports that he has no GI concerning symptoms. Moving his bowels without any issues. Denies dyspepsia, dysphagia or odynophagia. [facility] Medical History (Updated 01/20/24 @ 09:13 by Fabienne Yost, [facility]) Diverticulosis Carpal tunnel syndrome, bilateral Fatty liver Family history of heart disease GERD (gastroesophageal reflux disease) Sleep apnea Hyperlipidemia Family History Father Hypertension Mother No problems noted. 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 Current occupational exposures/hazards: No Cognitive needs: No Hearing needs: No Vision needs: No Review of Systems Const Denies weight gain and Denies weight loss ENT Reports no additional complaints, Denies dysphagia and Denies odynophagia Card Reports no additional complaints Resp Reports no additional complaints GI Denies abdominal pain, Denies belching, Denies melena, Denies bloating, Denies change in bowel habits, Denies dysphagia, Denies excessive flatus, Denies dyspepsia, Denies heartburn, Denies diarrhea, Denies loose stools, Denies nausea, Denies odynophagia and Denies vomiting Reports no additional complaints Musc Reports no additional complaints Neuro Reports no additional complaints Psych Reports no additional complaints Endo Reports no additional complaints Physical Exam Vital Signs: Last Vital Signs Pulse 62 01/20/24 08:16 BP 140/90 H 01/20/24 08:16 Pulse Ox 97 01/20/24 08:16 Oxygen Delivery Method Room Air 01/20/24 08:16 BMI result Body Mass Index 36.1 Const General: healthy appearing and no acute distress Nutritional Appearance: obese Orientation/consciousness: patient oriented x3 Resp Effort & Inspection: normal respiratory effort, able to speak in complete sentences, no tracheal deviation and symmetric chest movement Auscultation: clear to auscultation bilaterally Cardio Rate: regular rate GI Inspection: Yes normal to inspection, No distended and Yes obesity Palpation (GI): Soft to palpation, not firm, nontender and No hepatosplenomegaly present Auscultation: normal bowel sounds General: Yes no CVA tenderness Back/Spine/Pelvis Back: no CVA tenderness Skin General skin exam: elasticity normal, turgor normal and dry skin Neuro General: patient oriented x3 Psych Appearance: grossly normal Mental Status: mental status grossly normal Assessment & Plan Assessment & Plan (1) Diverticulosis: Code(s): K57.90 - Diverticulosis of intestine, part unspecified, without perforation or abscess without bleeding Category: Medical (2) Status post colonoscopy: Code(s): Z98.890 - Other specified postprocedural states (3) Family history of colorectal cancer: Code(s): Z80.0 - Family history of malignant neoplasm of digestive organs Plan Patient was encouraged to increase fiber in his diet. Patient will add probiotic daily. Colonoscopy in 5 years due to family history of CRC. Sooner if clinically necessary. Patient will follow-up in the office on as needed basis he is agreeable to this plan and verbalizes understanding of instructions. He was given the opportunity to ask questions and all questions answered. Thank you for allowing me to participate in his care Coding Level of Care Code Est Pt Level 3 (27170) Diagnoses Diverticulosis K57.90 Status post colonoscopy Z98.890 Family history of colorectal cancer Z80.0 Time Spent (min) 25 Comment 15 minutes spent with patient and additional 10 minutes spent reviewing his records
== END 2024-01-20 08:58 | disposition home or self-care (01) ==
PROVIDERS: PCP Internal Medicine; Visit Provider Nurse Practitioner Family
DX: K57.90 Diverticulosis of intestine, part unspecified, without perforation or abscess without bleeding (principal); Z98.890 Other specified postprocedural states; Z80.0 Family history of malignant neoplasm of digestive organs
CPT/HCPCS: 99213

== ENCOUNTER → 2024-01-20 07:58 | Outpatient (BNVA) | payer OTHER, SELFPAY | PROVIDERS: PCP Internal Medicine; Visit Provider Nurse Practitioner Family ==

== ENCOUNTER 2024-02-04 10:01 | Outpatient (AMB) | payer OTHER, SELFPAY ==
[2024-02-04 10:07] VITALS: BP 122/78; PULSE 71; O2SAT 98; BMI 36.4
--- NOTE | 2024-02-04 10:07 | MHC.PC.OV ---
Vital Signs 02/04/24 10:07 Height 5 ft 10 in Weight 254 lb BMI 36.4 BP 122/78 Blood Pressure Location Rt brachial Position Sitting Pulse 71 Pulse Source Pulse Oximeter Pulse Oximetry (%) 98 Oxygen Delivery Method Room Air Intake Visit Reasons: 4 Month F/U Intake Note: pt is here for 4 month follow up Insole Buffer Required: No Accompanied by: Self / Same As Patient Allergies No Known Allergies Allergy (Verified 02/04/24 12:12) Medication List - Last Reconciled 02/04/24 by BELINDA Gregg albuterol sulfate 90 mcg/actuation 1 inh inhalation QID PRN amlodipine 10 mg PO DAILY atorvastatin 40 mg PO BEDTIME hydrochlorothiazide 25 mg PO DAILY losartan 100 mg PO DAILY metoprolol succinate ER 25 mg PO DAILY trazodone 50 mg PO BEDTIME PRN 90 days Tobacco use date assessed: 09/30/23 Dental Screening Dental Screen Date: 09/30/23 HPI 4 Month F/U HPI Details HTN: Blood pressure is stable, managed with amlodipine 10mg, hydrochlorothiazide 25mg, losartan 100mg, and metoprolol 25mg. Will order labs. Denies chest pain, shortness of breath, headache, dizziness, and blurred vision. Pt c/o left shoulder/AC joint pain. Will order XR. He also c/o bilat thumb pain. Will order XRs. 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 [facility] Medical History Diverticulosis Carpal tunnel syndrome, bilateral Fatty liver Family history of heart disease GERD (gastroesophageal reflux disease) Sleep apnea Hyperlipidemia Surgical History Hx of colonoscopy Family History Father Hypertension Mother No problems noted. 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 1. Little interest or pleasure in doing things: not at all 2. Feeling down, depressed, or hopeless: not at all 3. Trouble falling or staying asleep, or sleeping too much: nearly every day 4. Feeling tired or having little energy: not at all 5. Poor appetite or overeating: not at all 6. Feeling bad about yourself - or that you are a failure or have let yourself or your family down: not at all 7. Trouble concentrating on things, such as reading the newspaper or watching television: not at all 8. Moving or speaking so slowly that other people could have noticed. Or the opposite - being so fidgety or restless that you have been moving around a lot more than usual: not at all 9. Thoughts that you would be better off or of hurting yourself in some way: not at all Total score: 3 Depression Screening Interpretation: Negative Depression Screening Done: Yes 46269 - PHQ-9 Billing: Yes Source: Developed by Drs. Zen Mix, Diana Naranjo, Neno Burnham and colleagues, with an educational gregoria from [employer]. Thrive Questionnaire Date Thrive assessed: 02/04/24 I am a: Patient What is your living situation today?: I have a steady place to live Within the past 12 months, did the food you bought not last and you didn't have the money to get more?: Never true Within the past 12 months, did you worry whether your food would run out before you got money to buy more?: Never true Do you have trouble paying for medicines?: No Do you have trouble getting transportation to medical appointments?: No Do you have trouble paying your heating and electricity bill?: No Do you have trouble taking care of your child, family member or friend?: No Do you have trouble with day-to-day activities such as bathing, preparing meals, shopping, managing finances, etc.?: No Are you interested in more education?: No Please select the resources that you would like help with: None Currently or been in a relationship where the following occur: No concerns reported THRIVE Score: 0 AUDIT C Alcohol Use Questionnaire (AUDIT-C) 1. How often do you have a drink containing alcohol?: Never 3. How often do you have six or more drinks on one occasion?: Never Total Score: 0 Score Reviewed/Action Taken: Yes MAYELA-7 AMB Questionnaire MAYELA-7 Date MAYELA - 7 assessed: 02/04/24 Feeling nervous, anxious, or on edge: 3 = Nearly every day Not being able to stop or control worryin = Not at all Worrying too much about different things: 0 = Not at all Trouble relaxin = Not at all Being so restless that it is hard to sit still: 0 = Not at all Becoming easily annoyed or irritable: 0 = Not at all Feeling afraid as if something awful might happen: 0 = Not at all Total MAYELA-7 score (0-4 normal; 5-9 mild; 10-14 moderate; 15-21 severe): 3 Source: Developed by Drs. Zen Mix, Diana Naranjo, Neno Burnham and colleagues, with an educational gregoria from [employer]. MAYELA-7 Assessment Billing MAYELA-7 Assessment Tool: MAYELA-7 Assessment 17403 Review of Systems Const Reports as per HPI Physical exam (Primary Care) Vital Signs: Last Vital Signs Pulse 71 02/04/24 10:07 BP 122/78 02/04/24 10:07 Pulse Ox 98 02/04/24 10:07 Oxygen Delivery Method Room Air 02/04/24 10:07 BMI result Body Mass Index 36.4 Tobacco/Smoking Status: Tobacco use Status Tobacco use date assessed 09/30/23 02/04/24 10:11 Patient Tobacco Use Status Never used Tobacco 02/04/24 10:11 e-Cigarette/Vaping Use Never Used 02/04/24 10:11 PHQ-9: PHQ-9 Score PHQ-9: Total score 3 02/04/24 10:25 Depression Screening Interpretation: Negative Thrive Assessment: Date of Thrive Assessment Date Thrive assessed 02/04/24 02/04/24 10:11 Currently or been in a relationship where the following occur: No concerns reported Const General: cooperative Nutritional Appearance: obese Orientation/consciousness: patient oriented x3 Resp Effort & Inspection: normal respiratory effort Auscultation: clear to auscultation bilaterally Cardio Rate: regular rate Rhythm: regular rhythm Heart sounds: S1 normal heart sound present and S2 normal heart sound present Neuro General: patient oriented x3 Extrem Other: left shoulder: + nuno, + neers, pain mostly to anterior left shoulder with assessments and ROM. thumbs without any erythema or swelling. Right lower extremity: no edema Left lower extremity: no edema Psych Appearance: grossly normal Mental Status: mental status grossly normal Speech and movement: Normal speech and movement present Affect: normal affect Attitude: cooperative Thought process: Normal thought process present Thought content: Normal thought content present Insight: Good insight present (Psych) Judgement: Good judgement present (Psych) Coding Level of Care Code Est Pt Level 3 (39377) Diagnoses HTN (hypertension) I10 Left shoulder pain M25.512 Thumb pain M79.646 Additional Codes MAYELA-7 Assessment Billing - MAYELA-7 Assessment Tool: MAYELA-7 Assessment 78904 ([id number]) Assessment & Plan Assessment & Plan (1) HTN (hypertension): Comment: cont all meds Code(s): I10 - Essential (primary) hypertension Category: Medical Plan: Stable, labs ordered (2) Left shoulder pain: Code(s): M25.512 - Pain in left shoulder Category: Medical Plan: XR ordered (3) Thumb pain: Comment: bilat Code(s): M79.646 - Pain in unspecified finger(s) Category: Medical Plan: XRs Plan The patient agreed to the use of a medical physiologist for this encounter. Scribed for BELINDA Mondragon by Loreto Ríos medical physiologist, on 02/04/2024 at 10:25 EST. Orders: Orders Complete Blood Count Auto Diff Today I10 - Essential (primary) hypertension Lipid Panel Today I10 - Essential (primary) hypertension XR shoulder LT min 2V Today M25.512 - Pain in left shoulder Comprehensive [place]. Panel Fast Today I10 - Essential (primary) hypertension TSH reflex Free T4 Today I10 - Essential (primary) hypertension UA CC w/rflx Micro + Cult Today I10 - Essential (primary) hypertension XR finger LT min 2V Today M79.646 - Pain in unspecified finger(s) XR finger RT min 2V Today M79.646 - Pain in unspecified finger(s) HLA B27 Today M25.512 - Pain in left shoulder, M79.646 - Pain in unspecified finger(s)
== END 2024-02-04 11:15 | disposition home or self-care (01) ==
PROVIDERS: PCP Internal Medicine; Visit Provider Nurse Practitioner Family
DX: I10 Essential (primary) hypertension (principal); M25.512 Pain in left shoulder; M79.646 Pain in unspecified finger(s)

== ENCOUNTER → 2024-02-04 10:01 | Outpatient (BNVA) | payer OTHER, SELFPAY | PROVIDERS: PCP Internal Medicine; Visit Provider Nurse Practitioner Family ==

== ENCOUNTER 2024-02-04 10:39 | Outpatient (REF) | payer OTHER, SELFPAY ==
--- NOTE | ~2024-02-04 | XR_ITS ---
EXAMINATION: XR SHOULDER LEFT 4 VIEWS CLINICAL INFORMATION: Pain in left shoulder M25.512. COMPARISON: None available TECHNIQUE: AP , Grashey, scapular Y, and axillary views of the left shoulder. FINDINGS: There is a focal area of lobulated calcific density in the region of the superior rotator cuff. Glenohumeral joint normal. Acromioclavicular joint normal. Surrounding bone and soft tissues otherwise normal XR/XR shoulder LT min 2V Impression: Calcific density in the region of the superior rotator cuff compatible with calcific tendinosis or calcific tendinitis. Electronically signed by: Wicho Chavez MD 04/07/2024 09:26 AM SUNI
--- NOTE | ~2024-02-04 | XR_ITS ---
EXAMINATION: XR FINGER LEFT 3 VIEWS CLINICAL INFORMATION: Pain in unspecified finger(s) M79.646. COMPARISON: None TECHNIQUE: 3 views of the left thumb including AP view of the hand FINDINGS: Tiny marginal osteophytes about the IP joint of the thumb indicative of minimal osteoarthritis The remaining bones joints and soft tissues are unremarkable. XR/XR finger LT min 2V IMPRESSION: Minimal osteoarthritis of the IP joint of the thumb. Electronically signed by: Wicho Chavez MD 04/07/2024 09:43 AM EST
--- NOTE | ~2024-02-04 | XR_ITS ---
EXAMINATION: XR FINGER RIGHT 3 VIEWS CLINICAL INFORMATION: Pain in unspecified finger(s) M79.646. COMPARISON: None TECHNIQUE: 3 views of the right thumb including AP view of the hand FINDINGS: The bones and soft tissues are normal. No fracture. Alignment is anatomic. Joint spaces are maintained. XR/XR finger RT min 2V IMPRESSION: Normal x-ray series of the right thumb Electronically signed by: Wicho Chavez MD 04/07/2024 09:24 AM SUNI
== END 2024-02-04 10:40 | disposition home or self-care (01) ==
LOC: HO.HMGCX 10:39
PROVIDERS: PCP Nurse Practitioner Family; Visit Provider Nurse Practitioner Family
DX: I10 Essential (primary) hypertension (principal); M25.512 Pain in left shoulder; M79.641 Pain in right hand; M79.642 Pain in left hand
CPT/HCPCS: 73030; 73140; 96127

== ENCOUNTER 2024-11-04 14:52 | Outpatient (AMB) | payer OTHER, SELFPAY ==
[2024-11-04 14:58] VITALS: BP 126/86; PULSE 102; RESP 16; TEMP 36.9; O2SAT 94; BMI 37.4
--- NOTE | 2024-11-04 14:58 | A.OFFPC_ITS ---
Vital Signs 11/04/24 14:58 Height 5 ft 10 in Weight 261 lb BMI 37.4 BP 126/86 Blood Pressure Location Lt brachial Position Sitting Respiration 16 Pulse 102 H Pulse Source Pulse Oximeter Temp 98.5 F Temp Source Oral Pulse Oximetry (%) 94 Oxygen Delivery Method Room Air Intake Visit Reasons: PE Metal Reed Tuner Required: No Accompanied by: Self / Same As Patient Allergies No Known Allergies Allergy (Verified 11/04/24 15:58) Medication List - Last Reconciled 11/04/24 by BELINDA Gregg albuterol sulfate 90 mcg/actuation 1 inh inhalation QID PRN amlodipine 10 mg PO DAILY atorvastatin 40 mg PO BEDTIME hydrochlorothiazide 25 mg PO DAILY losartan 100 mg PO DAILY metoprolol succinate ER 25 mg PO DAILY trazodone 50 mg PO BEDTIME PRN 90 days Tobacco use date assessed: 11/04/24 Dental Screening Dental Screen Date: 11/04/24 Did you have a dental visit in the last 12 months?: Yes Did you have a dental problem in the last 6 months where you did not have access to dental care?: No Was dental information given to patient?: Patient has dentist HPI PE HPI Details pt is here for a PE. Reports ongoing joint pains without any erythema or swelling. I will order labs to examine this further. Pt is morbidly obese, and knows he needs to loose weight, which only help with his joint discomfort (knees, hips, lower back, elbows). #2 pt reports intermittent chest discomfort. Denies any radicular symptoms, or PND. EKG in office today, benign. Pt reports he is under a lot of stress, and that's when it tends to be worse. Family Hx of Heart disease. will order a echo and stress test. Colon screen is up to date [facility] Medical History Diverticulosis Carpal tunnel syndrome, bilateral Fatty liver Family history of heart disease GERD (gastroesophageal reflux disease) Sleep apnea Hyperlipidemia Surgical History Hx of colonoscopy Family History Father Hypertension Mother No problems noted. 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 1. Little interest or pleasure in doing things: not at all 2. Feeling down, depressed, or hopeless: not at all 3. Trouble falling or staying asleep, or sleeping too much: not at all 4. Feeling tired or having little energy: not at all 5. Poor appetite or overeating: not at all 6. Feeling bad about yourself - or that you are a failure or have let yourself or your family down: not at all 7. Trouble concentrating on things, such as reading the newspaper or watching television: not at all 8. Moving or speaking so slowly that other people could have noticed. Or the opposite - being so fidgety or restless that you have been moving around a lot more than usual: not at all 9. Thoughts that you would be better off or of hurting yourself in some way: not at all Total score: 0 Depression Screening Interpretation: Negative Depression Screening Done: Yes 41499 - PHQ-9 Billing: Yes Source: Developed by Drs. Zen Mix, Diana Naranjo, Neno Burnham and colleagues, with an educational gregoria from [employer]. Thrive Questionnaire Date Thrive assessed: 10/28/24 I am a: Patient What is your living situation today?: I have a steady place to live Within the past 12 months, did the food you bought not last and you didn't have the money to get more?: Never true Within the past 12 months, did you worry whether your food would run out before you got money to buy more?: Never true Do you have trouble paying for medicines?: No Do you have trouble getting transportation to medical appointments?: No Do you have trouble paying your heating and electricity bill?: No Do you have trouble taking care of your child, family member or friend?: No Do you have trouble with day-to-day activities such as bathing, preparing meals, shopping, managing finances, etc.?: No Are you currently unemployed and looking for a job?: No Are you interested in more education?: No Please select the resources that you would like help with: None Currently or been in a relationship where the following occur: No concerns reported THRIVE Score: 0 AUDIT C Alcohol Use Questionnaire (AUDIT-C) 1. How often do you have a drink containing alcohol?: Never 3. How often do you have six or more drinks on one occasion?: Never Total Score: 0 Score Reviewed/Action Taken: Yes MAYELA-7 AMB Questionnaire MAYELA-7 Date MAYELA - 7 assessed: 11/04/24 Feeling nervous, anxious, or on edge: 0 = Not at all Not being able to stop or control worryin = Not at all Worrying too much about different things: 0 = Not at all Trouble relaxin = Not at all Being so restless that it is hard to sit still: 0 = Not at all Becoming easily annoyed or irritable: 0 = Not at all Feeling afraid as if something awful might happen: 0 = Not at all Total MAYELA-7 score (0-4 normal; 5-9 mild; 10-14 moderate; 15-21 severe): 0 Source: Developed by Drs. Zen Mix, Diana Naranjo, Neno Burnham and colleagues, with an educational gregoria from [employer]. MAYELA-7 Assessment Billing MAYELA-7 Assessment Tool: MAYELA-7 Assessment 36497 Review of Systems Const Denies chills and Denies fever(s) Eyes Denies blurry vision ENT Denies vertigo, Denies dizziness and Denies sore throat Card Denies chest pain at rest, Denies chest pain with activity, Denies diaphoresis, Denies dyspnea and Denies dyspnea on exertion Resp Denies cough, Denies dyspnea, Denies dyspnea on exertion and Denies wheezing GI Denies abdominal pain, Denies melena, Denies hematochezia, Denies constipation, Denies diarrhea and Denies loose stools Denies hematuria Musc Denies numbness and Denies tingling Skin/Breast Denies lesions Neuro Denies vertigo, Denies dizziness, Denies numbness and Denies tingling Psych Denies anxiety, Denies depression, Denies homicidal ideation, Denies suicidal ideation and Denies other (substance abuse) Aller/Immun Denies wheezing Physical exam (Primary Care) Vital Signs: Last Vital Signs Temp 98.5 F 11/04/24 14:58 Pulse 102 H 11/04/24 14:58 Resp 16 11/04/24 14:58 BP 126/86 11/04/24 14:58 Pulse Ox 94 11/04/24 14:58 Oxygen Delivery Method Room Air 11/04/24 14:58 BMI result Body Mass Index 37.4 Tobacco/Smoking Status: Tobacco use Status Tobacco use date assessed 11/04/24 11/04/24 15:04 Patient Tobacco Use Status Never used Tobacco 11/04/24 15:04 e-Cigarette/Vaping Use Never Used 11/04/24 15:04 PHQ-9: PHQ-9 Score PHQ-9: Total score 0 11/04/24 15:04 Depression Screening Interpretation: Negative Thrive Assessment: Date of Thrive Assessment Date Thrive assessed 10/28/24 11/04/24 15:04 Currently or been in a relationship where the following occur: No concerns reported Const General: cooperative Nutritional Appearance: well nourished and obese Orientation/consciousness: patient oriented x3 HENMT Other: slight cerumen to left Head: Yes normal to inspection, Yes normocephalic and Yes atraumatic Ears: TM normal on the right Eyes General: appearance normal, both eyes and all related structures Alignment and Position: alignment normal and position normal Neck Neck: Yes normal visual inspection, Yes no lymphadenopathy and Yes supple Resp Effort & Inspection: normal respiratory effort Auscultation: clear to auscultation bilaterally Cardio Rate: regular rate Rhythm: regular rhythm Heart sounds: S1 normal heart sound present, S2 normal heart sound present and no murmurs GI Other: umbilical hernia noted Palpation (GI): Soft to palpation and nontender Auscultation: normal bowel sounds Male General Exam: Yes normal external exam Penis: normal penis Scrotum: scrotum normal, testes descended bilaterally and no inguinal hernias Testes: no testicular mass Skin Rashes: no rashes Neuro General: patient oriented x3, moves all extremities, no focal motor deficits and deep tendon reflexes 2+ bilaterally Romberg Test: Negative Extrem Right lower extremity: no edema Left lower extremity: no edema Psych Affect: normal affect Attitude: cooperative Thought process: Normal thought process present Coding Level of Care Code Est Pt Level 3 (44207) Est Pt Prev Care 40-64y(89360) Diagnoses Joint pain M25.50 Chest discomfort R07.89 Family history of heart disease Z82.49 Additional Codes MAYELA-7 Assessment Billing - MAYELA-7 Assessment Tool: MAYELA-7 Assessment 48944 ([id number]) PHQ-9 - 88220 - PHQ-9 Billing: Yes ([id number]) Assessment & Plan Assessment & Plan (1) Joint pain: Code(s): M25.50 - Pain in unspecified joint Category: Medical (2) Chest discomfort: Code(s): R07.89 - Other chest pain Category: Medical (3) Family history of heart disease: Code(s): Z82.49 - Family history of ischemic heart disease and other diseases of the circulatory system Category: Medical Plan ekg, echo, stress test ordered. pt knows to seek emergency care with worsening symptoms Orders: Orders YESSENIA Reflex Titer and Pattern Today M25.50 - Pain in unspecified joint Cyclic Citrullinated Peptide Today M25.50 - Pain in unspecified joint Sjogren's Antibodies Today M25.50 - Pain in unspecified joint Erythrocyte Sedimentation Rate Today M25.50 - Pain in unspecified joint C Reactive Protein Today M25.50 - Pain in unspecified joint Uric Acid Today M25.50 - Pain in unspecified joint Complement C4 Today M25.50 - Pain in unspecified joint AMB EKG-In Office Today R07.89 - Other chest pain NM cardiolite stress test Today R07.89 - Other chest pain, Z82.49 - Family history of ischemic heart disease and other diseases of the circulatory system CA stress test Today R07.89 - Other chest pain, Z82.49 - Family history of ischemic heart disease and other diseases of the circulatory system HLA B27 Today M25.50 - Pain in unspecified joint Rheumatoid Factor Today M25.50 - Pain in unspecified joint Lyme IgG/IgM w/reflex to WB Today M25.50 - Pain in unspecified joint Tick-borne Disease Molecular Today M25.50 - Pain in unspecified joint Complement C3 Today M25.50 - Pain in unspecified joint
== END 2024-11-04 15:59 | disposition home or self-care (01) ==
LOC: HO.HMCC 14:52
PROVIDERS: PCP Internal Medicine; Visit Provider Nurse Practitioner Family
DX: Z00.00 Encounter for general adult medical examination without abnormal findings (principal); R07.89 Other chest pain; M25.50 Pain in unspecified joint; Z82.49 Family history of ischemic heart disease and other diseases of the circulatory system

== ENCOUNTER → 2024-11-04 14:52 | Outpatient (BNVA) | payer OTHER, SELFPAY | PROVIDERS: PCP Internal Medicine; Visit Provider Nurse Practitioner Family | DX: K21.9 Gastro-esophageal reflux disease without esophagitis (principal); M25.50 Pain in unspecified joint; R07.89 Other chest pain; E66.01 Morbid (severe) obesity due to excess calories; Z68.37 Body mass index [BMI] 37.0-37.9, adult; Z82.49 Family history of ischemic heart disease and other diseases of the circulatory system | CPT/HCPCS: 96127 ==

== ENCOUNTER 2024-11-11 07:21 | Outpatient (REF) | payer OTHER, SELFPAY ==
[2024-11-11 10:14] LABS: Appearance Urine Clear; Glucose Urine UA Negative (Negative); PH 7.0 (5.0-9.0); Specific Gravity - Urine 1.010 (1.005-1.025)
[2024-11-11 10:27] LABS: MANUAL DIFF FLAG NO
[2024-11-11 10:39] LABS: Hematocrit 46.3 % (42.0-52.0); Hemoglobin 15.7 g/dl (14.0-18.0); Imm Gran Abs Auto 0.02 X10*3/uL (0.00-0.03); Imm Gran Pct Auto 0.3 % (0.0-0.4); Lymphocytes Absolute Auto 2.2 X10*3/uL (1.2-4.9); Mean Corpuscular HGB Conc 33.9 g/dl (31.0-36.0); Mean Corpuscular Hemoglobin 29.5 pg (27.0-33.0); Mean Corpuscular Volume 86.9 fL (80.0-98.0); NRBC Abs Auto 0.000 X10*3/uL (0.0-0.012); NRBC Pct Auto 0.0 /100WBC (0.0-0.2); Platelet Count 263 X10*3/uL (160-400); Red Blood Count 5.33 X10*6/uL (4.60-5.80); White Blood Count 5.9 X10*3/uL (4.8-10.8)
[2024-11-11 10:59] LABS: Alanine Aminotransferase 58 U/L (0-40); Albumin Level 4.6 g/dL (3.5-5.0); Alkaline Phosphatase 77 U/L (39-117); Anion Gap 13 (12-20); Aspartate Amino Transferase 40 U/L (5-37); Blood Urea Nitrogen 11 mg/dL (9-16); Calcium 9.0 mg/dL (8.4-10.2); Carbon Dioxide 27 mmol/L (22-29); Chloride 105 mmol/L (96-108); Cholesterol 176 mg/dL (<200); Estimated Glomerular Filt Rate > 60; HDL Cholesterol 39 mg/dL (>40); Potassium 3.8 mmol/L (3.3-5.1); Sodium 141 mmol/L (135-145); Total Protein 7.1 g/dL (6.5-8.0); Triglycerides 122 mg/dL (<150); Uric Acid 5.5 mg/dL (3.4-7.0)
[2024-11-12 12:54] LABS: Lyme Abs Screen <0.90 index
[2024-11-12 21:28] LABS: Antibody to SS-A Antigen <1.0 NEG AI (<1.0 NEG); Antibody to SS-B Antigen <1.0 NEG AI (<1.0 NEG)
[2024-11-13 00:59] LABS: A. Phagocytphilium DNA,RT-PCR NOT DETECTED (NOT DETECTED); Babesia Microti DNA, RT-PCR NOT DETECTED (NOT DETECTED); Borrelia Miyamotoi,DNA RT-PCR NOT DETECTED (NOT DETECTED); E.Chaffeensis DNA RT-PCR NOT DETECTED (NOT DETECTED); Lyme(Borrelia ssp)DNA RT-PCR NOT DETECTED (NOT DETECTED)
[2024-11-16 11:53] LABS: Anti Nuclear Antibody Screen NEGATIVE (NEGATIVE)
[2024-11-17 18:03] LABS: HLA B27 Negative (Negative)
== END 2024-11-11 07:22 | disposition home or self-care (01) ==
LOC: HO.HMGCLDS 07:21
PROVIDERS: PCP Nurse Practitioner Family; Visit Provider Nurse Practitioner Family
DX: M25.50 Pain in unspecified joint (principal); I10 Essential (primary) hypertension
CPT/HCPCS: 36415; 80053; 80061; 81003; 84443; 84550; 85025; 85652; 86038; 86140; 86160; 86200; 86235; 86431; 86617; 86618; 86812; 87468; 87469; 87478; 87484; 87798

== ENCOUNTER → 2024-12-25 08:32 | Outpatient (REF) | payer OTHER, SELFPAY ==
--- NOTE | ~2024-12-25 | NM_ITS ---
EXERCISE MYOCARDIAL PERFUSION STUDY INDICATION: Chest pain with prior CAD to evaluate for myocardial ischemia TECHNIQUE: The patient was brought in for an exercise perfusion study on 12/25/2024. Patient performed exercise as per Dickson protocol and was injected 40 mCi of sestamibi once target heart rate was achieved. Images were obtained using the SPECT gamma camera interlaced with the gating device. Images were obtained in supine position. Resting perfusion study was performed on 12/30/2024. Patient was administered 40 mCi of sestamibi intravenously at rest. Images were then obtained in supine position. Images obtained without without CT attenuation. Total DLP 144 mGy-cm. Images were processed with the software and compared side to side in short axis, horizontal long axis and vertical long axis views. FINDINGS: Raw images were reviewed The stress perfusion study showed nonattenuated images show minimal thinning of the distal lateral wall of the LV myocardium as well as mildly reduced uptake in the basal and mid inferior wall of the LV myocardium. Attenuated corrected images show minimal thinning of the apex of the LV myocardium. The gated study shows normal LV systolic function with calculated LVEF of 70%. LV cavity is normal in size. The gated study shows normal systolic wall thickening and contraction of segments. Resting study shows nonattenuated images show no change in perfusion pattern compared to stress perfusion study. Gating at rest reveals normal systolic wall motion with ejection fraction at 68%. The findings are consistent with normal myocardial perfusion. NM/NM cardiolite stress test IMPRESSION: 1. Myocardial perfusion imaging study shows normal myocardial perfusion. 2. Gated LVEF is 70%. 3. Transient ischemic dilatation not present. EKG revealed negative for ischemia. Electronically signed by: Darrel Rivera MD 12/30/2024 01:57 PM EDT
--- NOTE | 2024-12-25 10:33 | CA_ITS ---
Acquisition Time: 2024-12-25 09:00:58 Total Exercise Time: 00:08:04 Test Indications: CHEST PAIN Medications: METOPROLOL ATROVASTATIN Protocol: SON Max HR: 169 BPM 97% of Pred: 173 BPM Max BP: 150/90 mmHG Max Work Load: 10.1 METS Exercise stress test with exercise 8 mins 4 secs of Son Protocol, achieving 98% MPHR, without any anginal symptoms, without any arrythmias, with normotensive response to exercise. Without any EKG changes meeting criteria for ischemia. In recovery, pot continued to feel well. Nuclear images pending. Test reviewed with Dr. Rucker. Referred By: Terry Giron Electronically Signed By: Tommy Daniels
== END ==
LOC: HO.CARD 08:32
PROVIDERS: PCP Nurse Practitioner Family; Visit Provider Nurse Practitioner Family
DX: R07.89 Other chest pain (principal); Z82.49 Family history of ischemic heart disease and other diseases of the circulatory system
CPT/HCPCS: 78452; 93017; A9500

== ENCOUNTER → 2024-12-25 10:33 | Outpatient (BNV) | payer OTHER, SELFPAY | PROVIDERS: PCP Nurse Practitioner Family | DX: R07.89 Other chest pain (principal) | CPT/HCPCS: 78452; 93016; 93018 ==

== ENCOUNTER 2025-04-06 09:59 | Outpatient (AMB) | payer OTHER, SELFPAY ==
[2025-04-06 10:14] VITALS: BP 122/70; PULSE 94; RESP 16; O2SAT 96
--- NOTE | 2025-04-06 10:14 | MHC.PC.OV ---
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 History of Present Illness The patient is a 49-year-old male presenting for follow-up of fatty liver. He has a history of fatty liver and is having difficulty with weight loss. 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 Social History - Weight management: The patient is currently overweight and plans to start a new weight loss program in April. - He appears motivated to make changes. Health Maintenance - Weight management: The importance of dietary restrictions and portion sizes for weight loss was reinforced. - The patient plans to start a new weight loss program in April. Review of Systems Physical Exam General: Cooperative, healthy appearing, comfortable, no acute distress and well developed, obese Orientation: Patient oriented x3 Limitations: No limitations Head: Normal to inspection Ears: Hearing grossly normal bilaterally Nose: Normal external nose present Face and sinus: Normal facial exam Eyes: Appearance normal, both eyes and all related structures Neck: Normal visual inspection and Yes full ROM Respiratory: Normal respiratory effort and able to speak in complete sentences. Clear to auscultation bilaterally Cardiovascular: Regular rate and rhythm. Normal S1 and S2 GI: Normal to inspection. Soft to palpation and nontender Skin: No rashes or lesions noted Neuro: Patient oriented x3 Extremities: Normal to inspection Results Plan 1. Overweight The patient continues to struggle with being overweight, which is related to his fatty liver. He is planning to start a weight loss program called [facility] in April. The need for dietary restrictions and portion control for weight management was emphasized, and he seems more motivated to proceed. 2. Fatty Liver The patient is following up for fatty liver and associated weight issues. The importance of weight loss through dietary restriction and portion control was reinforced. Fasting labs will be ordered in the near future, and follow-up will be scheduled to review the results. Discussion Notes I discussed with the patient that his follow-up is primarily for fatty liver, which is associated with his weight. We reinforced the importance of dietary restrictions and portion sizes for weight loss, as there is no magic solution. The patient understands this and seems more motivated for change. I will order fasting labs in the near future and will follow up with him to discuss the results. Patient Instructions - Continue to focus on weight loss by paying attention to dietary restrictions and portion sizes. - You will need to get fasting lab work done soon. - We will follow up to review the results of your lab work. [facility] Medical History Diverticulosis Carpal tunnel syndrome, bilateral Fatty liver Family history of heart disease GERD (gastroesophageal reflux disease) Sleep apnea Hyperlipidemia Surgical History Hx of colonoscopy Family History Father Hypertension Mother No problems noted. 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 1. Little interest or pleasure in doing things: not at all 2. Feeling down, depressed, or hopeless: not at all 3. Trouble falling or staying asleep, or sleeping too much: not at all 4. Feeling tired or having little energy: not at all 5. Poor appetite or overeating: not at all 6. Feeling bad about yourself - or that you are a failure or have let yourself or your family down: not at all 7. Trouble concentrating on things, such as reading the newspaper or watching television: not at all 8. Moving or speaking so slowly that other people could have noticed. Or the opposite - being so fidgety or restless that you have been moving around a lot more than usual: not at all 9. Thoughts that you would be better off or of hurting yourself in some way: not at all Total score: 0 Depression Screening Interpretation: Negative Depression Screening Done: Yes 15669 - PHQ-9 Billing: Yes Source: Developed by Drs. Zen Mix, Diana Naranjo, Neno Burnham and colleagues, with an educational gregoria from [employer] Thrive Questionnaire Date Thrive assessed: 10/28/24 What is your living situation today?: I have a steady place to live Within the past 12 months, did the food you bought not last and you didn't have the money to get more?: Never true Within the past 12 months, did you worry whether your food would run out before you got money to buy more?: Never true Do you have trouble paying for medicines?: No Do you have trouble getting transportation to medical appointments?: No Do you have trouble paying your heating and electricity bill?: No Do you have trouble taking care of your child, family member or friend?: No Do you have trouble with day-to-day activities such as bathing, preparing meals, shopping, managing finances, etc.?: No Are you currently unemployed and looking for a job?: No Are you interested in more education?: No Please select the resources that you would like help with: None Currently or been in a relationship where the following occur: No concerns reported THRIVE Score: 0 MAYELA-7 AMB Questionnaire MAYELA-7 Date MAYELA - 7 assessed: 04/06/25 Feeling nervous, anxious, or on edge: 0 = Not at all Not being able to stop or control worryin = Not at all Worrying too much about different things: 0 = Not at all Trouble relaxin = Not at all Being so restless that it is hard to sit still: 0 = Not at all Becoming easily annoyed or irritable: 0 = Not at all Feeling afraid as if something awful might happen: 0 = Not at all Total MAYELA-7 score (0-4 normal; 5-9 mild; 10-14 moderate; 15-21 severe): 0 Source: Developed by Drs. Zen Mix, Diana Naranjo, Neno Burnham and colleagues, with an educational gregoria from [employer] MAYELA-7 Assessment Billing MAYELA-7 Assessment Tool: MAYELA-7 Assessment 33849 Physical exam (Primary Care) Vital Signs: Last Vital Signs Pulse 94 04/06/25 10:14 Resp 16 04/06/25 10:14 BP 122/70 04/06/25 10:14 Pulse Ox 96 04/06/25 10:14 Oxygen Delivery Method Room Air 04/06/25 10:14 Tobacco/Smoking Status: Tobacco use Status Tobacco use date assessed 04/06/25 04/06/25 10:17 Patient Tobacco Use Status Never used Tobacco 04/06/25 10:17 e-Cigarette/Vaping Use Never Used 04/06/25 10:17 PHQ-9: PHQ-9 Score PHQ-9: Total score 0 04/06/25 10:17 Depression Screening Interpretation: Negative Thrive Assessment: Date of Thrive Assessment Date Thrive assessed 10/28/24 04/06/25 10:17 Currently or been in a relationship where the following occur: No concerns reported Coding Level of Care Code Est Pt Level 3 (05931) Diagnoses Obesity E66.9 Fatty liver K76.0 Additional Codes MAYELA-7 Assessment Billing - MAYELA-7 Assessment Tool: MAYELA-7 Assessment 03336 ([id number]) PHQ-9 - 30888 - PHQ-9 Billing: Yes ([id number]) Assessment & Plan Assessment & Plan (1) Obesity: Code(s): E66.9 - Obesity, unspecified Category: Medical (2) Fatty liver: Code(s): K76.0 - Fatty (change of) liver, not elsewhere classified Category: Medical Plan .
== END 2025-04-06 12:08 | disposition home or self-care (01) ==
LOC: HO.HMCC 10:00
PROVIDERS: PCP Internal Medicine; Visit Provider Nurse Practitioner Family
DX: K76.0 Fatty (change of) liver, not elsewhere classified (principal); E66.9 Obesity, unspecified

== ENCOUNTER → 2025-04-06 09:59 | Outpatient (BNVA) | payer OTHER, SELFPAY | PROVIDERS: PCP Internal Medicine; Visit Provider Nurse Practitioner Family | DX: K76.0 Fatty (change of) liver, not elsewhere classified (principal); E66.9 Obesity, unspecified | CPT/HCPCS: 96127 ==